=== PATIENT | male | born 1965 | race Caucasian/White ===

== ENCOUNTER 2017-09-15 12:17 | Emergency (ER) | payer OTHER ==
[2017-09-15 12:32] VITALS: BP 121/77
--- NOTE | 2017-09-15 13:29 | CR ---
CLINICAL HISTORY: 52-year-old male severe pain right knee (twisted). INTERPRETATION: Abnormal. Large suprapatellar bursal effusion right knee but no sign of underlying fracture, dislocation or rad iopaque loose joint body (fabella posteriorly). Chronic severe arthritic degenerative changes patellofemoral and right knee joint, i.e., sclerosis wi th hypertrophic spur formation patellofemoral surface patella, intercondylar tibial spines and margin s of the tibial plateau. No foreign bodies or inflammatory periostitis. CONCLUSION: Severe osteoarthritis. Joint effusion. No fractures.
--- NOTE | 2017-09-15 14:09 | EDM.PDOC ---
ED HPI GENERAL MEDICAL PROBLEM - General Chief Complaint: Lower Extremity Injury/Pain Stated Complaint: KNEE PAIN Time Seen by Provider: 09/15/17 12:30 Source of Information: Reports: Patient, RN, RN Notes Reviewed History Limitations: Reports: No Limitations - History of Present Illness INITIAL COMMENTS - FREE TEXT/NARRATIVE: Patient presents to the ER with complaint of right knee pain. States he twisted it while working in his basement last night. He can't bear weight. He rates the right in his right knee as a 9/10. Location: Reports: Lower Extremity, Right Quality: Reports: Ache Severity: Severe Improves with: Reports: None Worsens with: Reports: None Associated Symptoms: Reports: No Other Symptoms Right Knee Pain Score (Numeric/FACES): 8 - Related Data Allergies Allergy/AdvReac Type Severity Reaction Status Date / Time No Known Allergies Allergy Verified 09/15/17 12:21 Home Meds: Home Meds Pantoprazole [Protonix] 1 tab PO DAILY 01/23/16 [History] Lactulose [Constulose] 30 ml PO BID 07/04/16 [History] Pantoprazole Sodium 40 mg PO 07/04/16 [History] Nadolol [Corgard] 20 mg PO DAILY 09/15/17 [History] Spironolactone 25 mg PO DAILY 09/15/17 [History] Past Medical History HEENT History: Reports: Hard of Hearing, Impaired Vision, Other (See Below) Other HEENT History: WEARS CORRECTIVE LENSES Cardiovascular History: Reports: High Cholesterol, Hypertension Respiratory History: Reports: None Gastrointestinal History: Reports: GERD, Jaundice Genitourinary History: Reports: None Musculoskeletal History: Reports: None Neurological History: Reports: None Psychiatric History: Reports: Anxiety Endocrine/Metabolic History: Reports: None Hematologic History: Reports: None Immunologic History: Reports: None Oncologic (Cancer) History: Reports: None Dermatologic History: Reports: None - Infectious Disease History Infectious Disease History: Reports: Chicken Pox - Past Surgical History Head Surgeries/Procedures: Reports: None Respiratory Surgical History: Reports: None GI Surgical History: Reports: Appendectomy, EGD, Hernia, Inguinal, Other (See Below) Male Surgical History: Reports: None Endocrine Surgical History: Reports: None Neurological Surgical History: Reports: Discectomy, Lumbar Spine Musculoskeletal Surgical History: Reports: None Oncologic Surgical History: Reports: None Dermatological Surgical History: Reports: None Social & Family History - Family History Family Medical History: Noncontributory Cardiac: Reports: High Cholesterol, Hypertension Endocrine/Metabolic: Reports: Diabetes, type II - Tobacco Use Smoking Status *Q: Never Smoker Used Tobacco, but Quit: No Second Hand Smoke Exposure: No - Caffeine Use Caffeine Use: Reports: Soda - Alcohol Use Days Per Week of Alcohol Use: 0 - Recreational Drug Use Recreational Drug Use: No Drug Use in Last 12 Months: No Review of Systems - Review of Systems Review Of Systems: ROS reveals no pertinent complaints other than HPI. ED EXAM, GENERAL - Physical Exam Exam: See Below General Appearance: Alert, WD/WN, No Apparent Distress Eye Exam: Bilateral Eye: Normal Inspection Ears: Normal External Exam, Normal Canal, Hearing Grossly Normal, Normal TMs Nose: Normal Inspection, Normal Mucosa, No Blood Throat/Mouth: Normal Inspection, Normal Lips, Normal Teeth, Normal Gums, Normal Oropharynx, Normal Voice, No Airway Compromise Head: Atraumatic, Normocephalic Neck: Normal Inspection, Supple, Non-Tender, Full Range of Motion Respiratory/Chest: No Respiratory Distress, Lungs Clear, Normal Breath Sounds, No Accessory Muscle Use, Chest Non-Tender Cardiovascular: Normal Peripheral Pulses, Regular Rate, Rhythm, No Edema, No Gallop, No JVD, No Murmur, No Rub GI/Abdominal: Normal Bowel Sounds, Soft, Non-Tender, No Organomegaly, No Distention, No Abnormal Bruit, No Mass (Male) Exam: Deferred Rectal (Males) Exam: Deferred Back Exam: Normal Inspection, Full Range of Motion, NT Extremities: Other (right knee. Decreased ROM. Edematous.) Neurological: Alert, Oriented, CN II-XII Intact, Normal Cognition, Normal Gait, Normal Reflexes, No Motor/Sensory Deficits Psychiatric: Normal Affect, Normal Mood Skin Exam: Warm, Dry, Intact, Normal Color, No Rash Lymphatic: No Adenopathy Course - Vital Signs Last Recorded V/S: Last Vital Signs Temp 96.6 F 09/15/17 12:31 Pulse 69 09/15/17 12:31 Resp 16 09/15/17 12:31 BP 121/77 09/15/17 12:31 Pulse Ox 100 09/15/17 12:31 - Orders/Labs/Meds Meds: Medications Discontinued Medications Generic Name Dose Route Start Last Admin Trade Name Freq PRN Reason Stop Dose Admin Hydrocodone Bitart/Acetaminophen 1 tab 09/15/17 14:25 09/15/17 14:30 [place] 325-5 Mg PO 09/15/17 14:26 1 tab ONETIME ONE Administration - Radiology Interpretation Free Text/Narrative:: Right knee x-ray: Severe osteoarthritis. Joint effusion. No fractures. See rad report. Departure - Departure Time of Disposition: 14:04 Disposition: Home, Self-Care 01 Condition: Fair Clinical Impression: Contusion of knee - Discharge Information Instructions: Crutch Use, [id number], Knee Effusion, [id number], Knee Immobilizer, [id number] Referrals: PCP,None [Primary Care Provider] - Forms: ED Department Discharge Additional Instructions: Use knee immobilizer until pain is resolved. Use crutches Follow up with your primary care facility. Rest and ice
[2017-09-15] MEDS ORDERED: Acetaminophen/HYDROcodone 325-5 MG Tab PO ONE (14:25)
== END 2017-09-15 14:37 | disposition home or self-care (01) ==
LOC: DL.ED 12:17
DX: S80.01XA Contusion of right knee, initial encounter (principal); M17.11 Unilateral primary osteoarthritis, right knee; I10 Essential (primary) hypertension; E78.00 Pure hypercholesterolemia, unspecified; K21.9 Gastro-esophageal reflux disease without esophagitis; Z79.899 Other long term (current) drug therapy; X50.1XXA Overexertion from prolonged static or awkward postures, initial encounter; Y99.0 Civilian activity done for income or pay
CPT/HCPCS: 73564; 99283; A9270

== ENCOUNTER 2020-11-30 05:13 | Emergency (ER) | payer OTHER, MEDICARE ==
[2020-11-30] MEDS ORDERED: GI Cocktail Oral Solution 30 ML PO ONE (05:27)
--- NOTE | 2020-11-30 05:32 | EDM.PDOC ---
ED HPI GENERAL MEDICAL PROBLEM - General Chief Complaint: Respiratory Problem Stated Complaint: trouble breathing/feels something in chest Time Seen by Provider: 11/30/20 05:28 Source of Information: Reports: Patient History Limitations: Reports: No Limitations - History of Present Illness INITIAL COMMENTS - FREE TEXT/NARRATIVE: poor historian only able to give vague description of discomfort. essentially stating had back surgery last May and causing him pain and h/o gall bladder 2015 causing him discomfort, take protonix for GERD and causing him pain. ate chicken davies cheese sandwich tonight. spouse arrived states pt woke her up c/o SOB-CP and c/o back pain from surgery did see telemed but didn't get any pain meds. Middle Epigastric Pain Score (Numeric/FACES): 5 - Related Data Allergies Allergy/AdvReac Type Severity Reaction Status Date / Time No Known Allergies Allergy Verified 11/30/20 05:33 Home Meds: Home Meds Pantoprazole [Protonix] 1 tab PO DAILY 01/23/16 [History] Lactulose [Constulose] 30 ml PO BID 07/04/16 [History] Pantoprazole Sodium 40 mg PO 07/04/16 [History] Spironolactone 25 mg PO DAILY 09/15/17 [History] nadoloL [Corgard] 20 mg PO DAILY 09/15/17 [History] Past Medical History HEENT History: Reports: Hard of Hearing, Impaired Vision, Other (See Below) Other HEENT History: WEARS CORRECTIVE LENSES Cardiovascular History: Reports: High Cholesterol, Hypertension Respiratory History: Reports: None Gastrointestinal History: Reports: GERD, Jaundice Genitourinary History: Reports: None Musculoskeletal History: Reports: None Neurological History: Reports: None Psychiatric History: Reports: Anxiety Endocrine/Metabolic History: Reports: None Hematologic History: Reports: None Immunologic History: Reports: None Oncologic (Cancer) History: Reports: None Dermatologic History: Reports: None - Infectious Disease History Infectious Disease History: Reports: Chicken Pox - Past Surgical History Head Surgeries/Procedures: Reports: None Respiratory Surgical History: Reports: None GI Surgical History: Reports: Appendectomy, EGD, Hernia, Inguinal, Other (See Below) Male Surgical History: Reports: None Endocrine Surgical History: Reports: None Neurological Surgical History: Reports: Discectomy, Lumbar Spine Musculoskeletal Surgical History: Reports: None Oncologic Surgical History: Reports: None Dermatological Surgical History: Reports: None Social & Family History - Family History Family Medical History: No Pertinent Family History Cardiac: Reports: High Cholesterol, Hypertension Endocrine/Metabolic: Reports: Diabetes, type II - Caffeine Use Caffeine Use: Reports: Soda ED ROS GENERAL - Review of Systems Review Of Systems: Comprehensive ROS is negative, except as noted in HPI. ED EXAM, GENERAL - Physical Exam Exam: See Below Exam Limited By: No Limitations General Appearance: Alert, WD/WN, Mild Distress, Other (discomfort) Ears: Hearing Grossly Normal Throat/Mouth: Normal Voice, No Airway Compromise Head: Atraumatic Neck: Non-Tender, Full Range of Motion Respiratory/Chest: No Respiratory Distress Cardiovascular: Regular Rate, Rhythm GI/Abdominal: Tender, Other (epig region). No: Distended, Guarding, Rigid, Rebound (Male) Exam: Deferred Rectal (Males) Exam: Deferred Back Exam: Full Range of Motion Extremities: Normal Range of Motion Neurological: Alert, Oriented, Normal Cognition, Normal Gait, No Motor/Sensory Deficits Psychiatric: Flat Affect Skin Exam: Warm, Dry, Normal Color Lymphatic: No Adenopathy Course - Vital Signs Last Recorded V/S: Last Vital Signs Temp 35.7 C L 11/30/20 05:28 Pulse 63 11/30/20 05:28 Resp 16 11/30/20 05:28 BP 143/83 H 11/30/20 05:28 Pulse Ox 99 11/30/20 05:28 - Orders/Labs/Meds Labs: Laboratory Tests 11/30/20 11/30/20 11/30/20 Range/Units 06:08 06:08 06:08 WBC 6.9 (5.0-10.0) 10^3/uL RBC 4.76 (4.6-6.2) 10^6/uL Hgb 15.5 (14.0-18.0) g/dL Hct 44.5 (40.0-54.0) % MCV 93.5 (80-100) fL MCH 32.6 (27.0-34.0) pg MCHC 34.8 (33.0-35.0) g/dL Plt Count 225 (150-450) 10^3/uL Neut % (Auto) 63.8 (42.2-75.2) % Lymph % (Auto) 21.9 (20.5-50.1) % [place] % (Auto) 12.1 H (2-8) % Eos % (Auto) 1.9 (1.0-3.0) % Baso % (Auto) 0.3 (0.0-1.0) % D-Dimer, Quantitative < 100 (0-400) ng/mL Sodium 141 (136-145) mmol/L Potassium 3.8 (3.5-5.1) mmol/L Chloride 104 (98-107) mmol/L Carbon Dioxide 29 (21-32) mmol/L Anion Gap 11.8 (7-13) mEq/L BUN 18 (7-18) mg/dL Creatinine 0.81 (0.70-1.30) mg/dL Est Cr Clr Drug Dosing 99.69 mL/min Estimated GFR (MDRD) > 60 BUN/Creatinine Ratio 22.2 (No establ ref range) Glucose 109 H (74-99) mg/dL Calcium 8.6 (8.5-10.1) mg/dL Total Bilirubin 0.2 (0.2-1.0) mg/dL AST 22 (15-37) U/L ALT 50 (16-63) U/L Alkaline Phosphatase 78 (46-116) U/L Troponin I < 0.017 (0.000-0.056) ng/mL Total Protein 6.7 (6.4-8.2) g/dL Albumin 4.0 (3.4-5.0) g/dL Globulin 2.7 Albumin/Globulin Ratio 1.5 Amylase 73 (25-115) U/L Lipase 102 (73-393) U/L Meds: Medications Discontinued Medications Generic Name Dose Route Start Last Admin Trade Name Freq PRN Reason Stop Dose Admin Al Hydroxide/Mg Hydroxide 30 ml 11/30/20 05:27 11/30/20 05:31 Gi Cocktail PO 11/30/20 05:28 30 ml ONETIME ONE Administration Tramadol HCl 50 mg 11/30/20 06:56 Ultram PO 11/30/20 06:57 ONETIME ONE - Re-Assessments/Exams Free Text/Narrative Re-Assessment/Exam: 11/30/20 05:58 re-exam; s/p GI cocktail = '0' 11/30/20 06:39 re-exam; feeling better now. 11/30/20 06:58 results discussed with pt and spouse. Departure - Departure Time of Disposition: 06:59 Disposition: Home, Self-Care 01 Condition: Good Clinical Impression: Lumbar paraspinal muscle spasm GERD with esophagitis Qualifiers: Esophagitis bleeding: without hemorrhage Qualified Code(s): K21.00 - Gastro- esophageal reflux disease with esophagitis, without bleeding - Discharge Information Forms: ED Department Discharge Additional Instructions: 1) rest 2) avoid bending lifting straining 3) try ice or heat to sore area 4) follow up at clinic rx given; tramadol 50mg bid to tid prn x 12 flexeril 10mg bid to tid prn x 12 Sepsis Event Note (ED) - Focused Exam Vital Signs: Vital Signs Temp Pulse Resp BP Pulse Ox 11/30/20 05:28 35.7 C L 63 16 143/83 H 99
[2020-11-30 05:33] VITALS: BP 143/83; PULSE 63
[2020-11-30 06:36] LABS: ANION GAP 11.8 mEq/L (7-13); CHLORIDE,CL 104 mmol/L (98-107); SODIUM,NA 141 mmol/L (136-145)
[2020-11-30] MEDS ORDERED: traMADol 50 MG Tab PO ONE (06:56)
== END 2020-11-30 07:15 | disposition home or self-care (01) ==
LOC: DL.ED 05:13
DX: K21.00 Gastro-esophageal reflux disease with esophagitis, without bleeding (principal); M62.830 Muscle spasm of back; I10 Essential (primary) hypertension; Z79.899 Other long term (current) drug therapy
CPT/HCPCS: 36415; 80053; 82150; 83690; 84484; 85025; 85379; 99283; A9270

== ENCOUNTER 2025-07-14 07:54 | Emergency (ER) | payer MEDICARE, OTHER ==
[2025-07-14 08:34] VITALS: BP 119/99; PULSE 93
[2025-07-14] MEDS: methylPREDNISolone 4 MG Tab 21 Tab/Dosepak PO ONE (09:22)
== END 2025-07-14 09:31 | disposition home or self-care (01) ==
LOC: DL.ED 07:54
DX: M54.2 Cervicalgia (principal); I10 Essential (primary) hypertension; E78.00 Pure hypercholesterolemia, unspecified; K21.9 Gastro-esophageal reflux disease without esophagitis; Z79.899 Other long term (current) drug therapy
CPT/HCPCS: 70450; 72125; 99283; J7509